=== PATIENT | male | born 1995 | race Two or more races ===

== ENCOUNTER 2018-07-01 20:33 | Emergency (ER) | payer MEDICAID, OTHER ==
[~2018-07-01] VITALS: Ht 162.6 cm; Wt 58.2 kg
[2018-07-01 20:40] VITALS: Ht 162.6 cm; Wt 58.2 kg
--- NOTE | 2018-07-01 21:45 | ERD ---
ER Documentation Chief Complaint Chief Complaint C/O RT SIDED AP X3 DAYS HPI The patient is a 22-year-old male, presenting to the ER because of intermittent right-sided abdominal pain for the last 2-3 days, denies similar symptoms pr eviously. The abdominal pain only lasting for seconds and went away by itself; no provoking factors. He denies any abdominal pain now, denies fever, chills, neck pain, chest pain, dyspnea, vomiting, dysuria, diarrhea. He checked it before he came to the emergency department. He does not smoke nor drink nor use illicit drug Past medical/surgical history: None ROS All systems reviewed and are negative except as per history of present illness. Medications Home Meds No Active Prescriptions or Reported Meds Allergies Allergies: Coded Allergies: No Known Allergy (Unverified , 02/24/14) PMhx/Soc Medical and Surgical Hx: pt denies Medical Hx, pt denies Surgical Hx Hx Alcohol Use: No Hx Substance Use: No Hx Tobacco Use: No Smoking Status: Never smoker Physical Exam Vitals Vital Signs Date Temp Pulse Resp B/P (MAP) Pulse Ox O2 O2 Flow FiO2 Time Delivery Rate 07/01/18 99.2 118 19 126/86 96 Room Air 21:43 (99) 07/01/18 99.2 109 19 147/85 96 20:40 (105) Physical Exam Const: No acute distress. Head: Atraumatic. Eyes: Normal Conjunctiva. ENT: Normal External Ears, Nose and Mouth. Neck: Full range of motion. No meningismus. Resp: Clear to auscultation bilaterally. Cardio: Regular rate and rhythm. Abd: Soft, non distended, normal bowel sounds, non tender. There is no right lower quadrant/right upper quadrant/epigastric/CVA tenderness Skin: No petechiae or rashes. Back: No midline or flank tenderness. Ext: No cyanosis, or edema. Neur: Awake and alert. No focal deficit Psych: Normal Mood and Affect. Result Diagram: 07/01/18213907/01/182139 Results 24 hrs Laboratory Tests Test 07/01/18 21:40 07/01/18 22:35 White Blood Count 5.9 10^3/ul Red Blood Count 5.23 10^6/ul Hemoglobin 15.8 g/dl Hematocrit 44.7 % Mean Corpuscular Volume 85.5 fl Mean Corpuscular Hemoglobin 30.2 pg Mean Corpuscular Hemoglobin Concent 35.3 g/dl Red Cell Distribution Width 11.5 % Platelet Count 134 10^3/UL Mean Platelet Volume 11.8 fl Immature Granulocytes % 0.300 % Neutrophils % 57.2 % Lymphocytes % 33.8 % Monocytes % 6.1 % Eosinophils % 1.9 % Basophils % 0.7 % Nucleated Red Blood Cells % 0.0 /100WBC Immature Granulocytes # 0.020 10^3/ul Neutrophils # 3.4 10^3/ul Lymphocytes # 2.0 10^3/ul Monocytes # 0.4 10^3/ul Eosinophils # 0.1 10^3/ul Basophils # 0.0 10^3/ul Nucleated Red Blood Cells # 0.0 10^3/ul Sodium Level 142 mmol/L Potassium Level 3.3 mmol/L Chloride Level 100 mmol/L Carbon Dioxide Level 28 mmol/L Anion Gap 14 Blood Urea Nitrogen 14 mg/dl Creatinine 0.87 mg/dl Est Glomerular Filtrat Rate mL/min > 60 mL/min Glucose Level 117 mg/dl Calcium Level 10.2 mg/dl Total Bilirubin 0.5 mg/dl Direct Bilirubin 0.00 mg/dl Indirect Bilirubin 0.5 mg/dl Aspartate Amino Transf (AST/SGOT) 20 IU/L Alanine Aminotransferase (ALT/SGPT) 17 IU/L Alkaline Phosphatase 54 IU/L Total Protein 8.1 g/dl Albumin 5.1 g/dl Globulin 3.00 g/dl Albumin/Globulin Ratio 1.70 Lipase 50 U/L Bedside Urine pH (LAB) 7.0 Bedside Urine Protein (LAB) Negative Bedside Urine Glucose (UA) Negative Bedside Urine Ketones (LAB) Negative Bedside Urine Blood Negative Bedside Urine Nitrite (LAB) Negative Bedside Urine Leukocyte Esterase (L Negative Current Medications Medications Dose Sig/Jose Start Time Status Last (Trade) Ordered Route PRN Stop Time Admin Dose Reason Admin Sodium 1,000 ml @ Q1H STAT 07/01/18 DC 07/01/18 Chloride 1,000 mls/hr IV 21:50 21:55 07/01/18 22:49 Potassium 40 meq ONCE STAT 07/01/18 DC 07/01/18 Chloride PO 22:21 23:09 (Klor-Con 20) 07/01/18 22:26 Procedures/MDM MEDICAL MAKING DECISION: The patient is a 22-year-old male, presenting with intermittent abdominal pain, resolved, does not have any abdominal pain now. He was treated with 1 L normal saline in acute dehydration, potassium chloride 40 mg p.o. for acute hypokalemia with good response. On multiple reevaluation, repeat abdominal exams are unremarkable. I do not suspect any acute abdomen The differential diagnoses considered include but are not limited to mesenteric adenitis, cholelithiasis, cholecystitis, choledocholithiasis, cholangitis, pancreatitis, hepatitis, gastritis, peptic ulcer disease, gastric ulcer, early appendicitis, cystitis, diverticulitis, partial small bowel obstruction. Departure Diagnosis: Primary Impression: Abdominal pain Additional Impressions: Hypokalemia Thrombocytopenia Condition: Good Comments The patient's blood pressure was elevated (>120/80) but appears stable without evidence of hypertension emergency or urgency. The patient was counseled about the risks of hypertension and urged to pursue outpatient monitoring and therapy within a week with their primary care physician. I discussed the findings with the patient. I advised the patient to return in 8 hours for re-eval, sooner if needed and return if any concern. Disclaimer: Inadvertent spelling and grammatical errors are likely due to EHR/dictation software use and do not reflect on the overall quality of patient care. Also, please note that the electronic time recorded on this note does not necessarily reflect the actual time of the patient encounter. TEFSAYE HINES MD Jul 01, 2018 21:45
[2018-07-01] MEDS ORDERED: SOD CHLORIDE 0.9% 1,000 ML IV STA (21:50)
[2018-07-01] MEDS ORDERED: POTASSIUM CHLORIDE (SR) 20 MEQ TAB PO STA (22:21)
[2018-07-01 23:19] VITALS: BP 120/72; PULSE 98; RESP 20
== END 2018-07-01 23:47 | disposition home or self-care (01) ==
LOC: E/R 20:33
DX: E87.6 Hypokalemia (principal); D69.6 Thrombocytopenia, unspecified
CPT/HCPCS: 36415; 80053; 81003; 83690; 85025; J7030; Z7502; Z7610

== ENCOUNTER 2018-07-02 07:14 | Emergency (ER) | payer OTHER ==
[~2018-07-02] VITALS: Ht 162.6 cm; Wt 58.1 kg
[2018-07-02 07:17] VITALS: BP 134/75; PULSE 84; RESP 17; Ht 162.6 cm; Wt 58.1 kg
--- NOTE | 2018-07-02 08:26 | ERD ---
ER Documentation Chief Complaint Chief Complaint RECHECK OF RT SIDED AP. SEEN YESTERDAY STATES IMPROVEMENT HPI 22-year-old male presenting with abdominal recheck. Patient was seen here yes terday and recommended to return for abdominal recheck. Patient states his symptoms have improved. He has not taken medication since leaving the hospital yesterday. Denies any vomiting or fevers. He has no changes in urination or bowel movement. Denies medical problems. NKDA. Surgical history denies. Social history denies ROS All systems reviewed and are negative except as per history of present illness. Medications Home Meds No Active Prescriptions or Reported Meds Allergies Allergies: Coded Allergies: No Known Allergy (Unverified , 02/24/14) PMhx/Soc Hx Alcohol Use: No Hx Substance Use: No Hx Tobacco Use: No Smoking Status: Never smoker FmHx Family History: No diabetes, No coronary disease, No other Physical Exam Vitals Vital Signs Date Temp Pulse Resp B/P (MAP) Pulse Ox O2 O2 Flow FiO2 Time Delivery Rate 07/02/18 96.0 84 17 134/75 100 07:17 (94) Physical Exam GENERAL: The patient is well-appearing, well-nourished, in no acute distress CHEST: Clear to auscultation bilaterally. There are no rales, wheezes or rhonchi. HEART: Regular rate and rhythm. No murmurs, clicks, rubs or gallops. ABDOMEN:Soft, nontender and nondistended. Good bowel sounds. No rebound or guarding. No gross peritonitis. No gross organomegaly or masses. BACK: No midline or flank tenderness. Procedures/MDM DM: 22-year-old male presenting with abdominal pain. Patient's abdominal exam is non-concerning. I explained that I do not feel that there is indication for further blood work or imaging and parents agreed. Patient is discharged with strict ER precautions and told if symptoms change or worsen to return to the ER. All questions answered at discharge Departure Diagnosis: Primary Impression: Abdominal pain Condition: Stable Patient Instructions: Abdominal Pain Referrals: [facility] YOU HAVE RECEIVED A MEDICAL SCREENING EXAM AND THE RESULTS INDICATE THAT YOU DO NOT HAVE A CONDITION THAT REQUIRES URGENT TREATMENT IN THE EMERGENCY DEPARTMENT. FURTHER EVALUATION AND TREATMENT OF YOUR CONDITION CAN WAIT UNTIL YOU ARE SEEN IN YOUR DOCTORS OFFICE WITHIN THE NEXT 1-2 DAYS. IT IS YOUR RESPONSIBILITY TO MAKE AN APPOINTMENT FOR FOLOW-UP CARE. IF YOU HAVE A PRIMARY DOCTOR --you should call your primary doctor and schedule an appointment IF YOU DO NOT HAVE A PRIMARY DOCTOR YOU CAN CALL OUR PHYSICIAN REFERRAL HOTLINE AT IF YOU CAN NOT AFFORD TO SEE A PHYSICIAN YOU CAN CHOSE FROM THE FOLLOWING [facility] [address] [facility] [address] [facility] [facility] [address] [facility] [address] [facility]. [facility] [address] [facility]. [facility]. [address] Additional Instructions: FOLLOW UP WITH YOUR PRIMARY CARE PHYSICIAN TOMORROW.Return to this facility if you are not improving as expected. VENITA BOYLE PA-C Jul 02, 2018 08:26
== END 2018-07-02 08:21 | disposition home or self-care (01) ==
LOC: FTE 07:14
DX: R10.9 Unspecified abdominal pain (principal)
CPT/HCPCS: 99282

== ENCOUNTER 2018-10-25 21:30 | Emergency (ER) | payer OTHER ==
[~2018-10-25] VITALS: Ht 162.6 cm; Wt 57.5 kg
[2018-10-25 21:41] VITALS: BP 119/70; PULSE 97; RESP 20; Ht 162.6 cm; Wt 57.5 kg
--- NOTE | 2018-10-25 22:18 | ERD ---
ER Documentation Chief Complaint Chief Complaint C/O LT SIDE CP AND PALPITATIONS SINCE YESTERDAY, BLOATING TODAY HPI Patient is a 23-year-old male with no medical problems who presents with palpitations. The symptoms started at 7 AM. They continued all day and actually felt better as the day went on. The mother was concerned that so she brought him to the emergency department. The patient has a history of similar episode in the past. The patient has had no treatment as of yet. Upon review of old medical records this is the patient's fifth visit to the ER since 2007. His primary doctor is Dr. Padilla. ROS All systems reviewed and are negative except as per history of present illness. Medications Home Meds No Active Prescriptions or Reported Meds Allergies Allergies: Coded Allergies: No Known Allergy (Unverified , 02/24/14) PMhx/Soc Medical and Surgical Hx: pt denies Medical Hx, pt denies Surgical Hx Hx Alcohol Use: No Hx Substance Use: No Hx Tobacco Use: No Smoking Status: Never smoker FmHx Family History: No diabetes Physical Exam Vitals Vital Signs Date Temp Pulse Resp B/P (MAP) Pulse Ox O2 O2 Flow FiO2 Time Delivery Rate 10/25/18 98.4 97 20 119/70 99 21:41 (86) Physical Exam Const: No acute distress Head: Atraumatic Eyes: Normal Conjunctiva ENT: Normal External Ears, Nose and Mouth. Neck: Full range of motion. No meningismus. Resp: Clear to auscultation bilaterally Cardio: Regular rate and rhythm, no murmurs Abd: Soft, non tender, non distended. Normal bowel sounds Skin: No petechiae or rashes Back: No midline or flank tenderness Ext: No cyanosis, or edema Neur: Awake and alert Psych: Normal Mood and Affect Procedures/MDM EKG read by me: Rate/Rhythm: Sinus tachycardia rate of 107 Intervals: Normal Impression: Sinus tachycardia without ischemia Patient is a 23-year-old male who presents with a feeling of palpitations. His EKG shows sinus tachycardia but no signs of acute ischemia or other arrhythmia. The patient is otherwise well-appearing without complaints at this time. He says that he feels that the palpitations are gone. I believe this may have been anxiety or panic attack. I do not believe he has a serious life-threatening etiology of his palpitations. The patient will be discharged and can return for any worsening symptoms. The patient understands the plan and is okay for discharge at this time. I doubt acute coronary syndrome, pulmonary embolism, or serious ventricular arrhythmia. Departure Diagnosis: Primary Impression: Palpitations Condition: Fair Patient Instructions: Palpitations Additional Instructions: Call your primary care doctor TOMORROW for an appointment during the next 1 WEEK.Tell the secretary of police that you were referred from this facility.See the doctor sooner or return here if your condition worsens before your appointment time. ASHUTOSH ARITA MD Oct 25, 2018 22:18
== END 2018-10-25 22:46 | disposition home or self-care (01) ==
LOC: FTE 21:30
DX: R00.2 Palpitations (principal)
CPT/HCPCS: 93005; Z7502